=== PATIENT | female | born 1950 | race Caucasian/White ===

== ENCOUNTER 2016-10-21 10:05 | Emergency (ER) | payer MEDICARE, OTHER ==
[2016-10-21] MEDS ORDERED: Ibuprofen TAB* 600 MG PO ONE (10:23)
[2016-10-21 10:36] VITALS: BP 136/74
--- NOTE | 2016-10-21 11:19 | RAD ---
HISTORY: Left wrist injury COMPARISONS: None VIEWS: 3, Frontal, lateral, and oblique views left wrist FINDINGS: BONE DENSITY: Normal. BONES: There is a minimally displaced fracture of the distal ulnar metaphysis. Evaluation of the proximal forearm is limited. JOINTS: There is no arthropathy. ALIGNMENT: There is no dislocation. SOFT TISSUES: Unremarkable. OTHER FINDINGS: None. IMPRESSION: MINIMALLY DISPLACED FRACTURE OF THE DISTAL ULNA
[2016-10-21] MEDS ORDERED: HYDROcodone/ACETAMIN 5-325 MG* 1 TAB PO ONE (11:29)
--- NOTE | 2016-10-21 11:44 | UC ---
Hand/Wrist HPI - HPI Summary HPI Summary: left forearm pain , swelling and eechymosis left forearm, n/m/c intact swelling in left hand, (rings removed) - History Of Current Complaint Chief Complaint: UCUpperExtremity Stated Complaint: LEFT ARM INJURY Time Seen by Provider: 10/21/16 10:18 Hx Obtained From: Patient ?: No Mechanism Of Injury: fall-caught toe in shower ledge this morning Onset/Duration: Sudden Onset, Lasting Hours, Still Present Severity Initially: Severe Severity Currently: Severe Pain Intensity: 10 Pain Scale Used: 0-10 Numeric Character Of Pain: Aching, Throbbing Aggravating Factor(s): Movement Alleviating: Rest Associated Signs And Symptoms: Positive: Swelling, Bruising Related History: Dominant Hand Right - Allergies/Home Medications Allergies/Adverse Reactions: Allergies Allergy/AdvReac Type Severity Reaction Status Date / Time No Known Allergies Allergy Verified 10/21/16 10:31 PMH/Surg Hx/FS Hx/Imm Hx Previously Healthy: Yes - Surgical History Surgical History: Yes Surgery Procedure, Year, and Place: [email or web address] - Family History Known Family History: Positive: None Family History: no reported cardiovascular issues in family lineage - Social History Occupation: Retired Lives: With Family Alcohol Use: None Substance Use Type: None Smoking Status (MU): Heavy Every Day Tobacco Smoker Type: Cigarettes Amount Used/How Often: 1 PPD Cessation Counseling: Patient Advised to Stop Review of Systems Constitutional: Negative Skin: Negative Eyes: Negative ENT: Negative Respiratory: Negative Cardiovascular: Negative Gastrointestinal: Negative Genitourinary: Negative Motor: Decreased ROM - unable to supinate left arm Neurovascular: Negative Musculoskeletal: Negative, Arthralgia - left forearm, Edema Neurological: Negative Psychological: Negative All Other Systems Reviewed And Are Negative: Yes Physical Exam Triage Information Reviewed: Yes Appearance: Well-Appearing, Pain Distress, Thin Vital Signs: Initial Vital Signs Temp 99.5 F 10/21/16 10:32 Pulse 75 10/21/16 10:32 Resp 16 10/21/16 10:32 BP 136/74 10/21/16 10:32 Pulse Ox 96 10/21/16 10:32 Vital Signs Reviewed: Yes Eye Exam: Normal Eyes: Positive: Conjunctiva Clear ENT Exam: Normal ENT: Positive: Normal ENT inspection, Hearing grossly normal. Negative: Nasal congestion, Nasal drainage, Trismus, Muffled/hoarse voice Dental Exam: Normal Neck exam: Normal Neck: Positive: Supple, Nontender, No Lymphadenopathy Respiratory Exam: Normal Respiratory: Positive: Chest non-tender, No respiratory distress, No accessory muscle use Cardiovascular Exam: Normal Cardiovascular: Positive: RRR, Pulses Normal, Brisk Capillary Refill Musculoskeletal Exam: Normal Musculoskeletal: Positive: Strength Intact, ROM Intact, No Edema Neurological Exam: Normal Neurological: Positive: Alert, Muscle Tone Normal Psychological Exam: Normal Skin Exam: Normal Diagnostics - Radiology No standard instances Xray Interpretation: Positive (See Comments) - minimally displaced left distal ulna fracture Radiology Interpretation Completed By: Radiologist Re-Evaluation - Re-Evaluation First Eval Change: Improved - increase comfort n/m/c intact after sugar tounge splint and sling applied Hand/Wrist Course/Dx - Course Course Of Treatment: rice, splint and sling pain med, follow with ortho 2-3 days - Differential Dx/Diagnosis Differential Diagnosis/HQI/PQRI: Contusion, Fracture, Sprain, Strain Provider Diagnoses: Left distal ulna fracture, nicotine dependent Discharge - Discharge Plan Condition: Stable Disposition: HOME Prescriptions: HYDROcodone/ACETAMIN 5-325 MG* [[place] 5-325 TAB*] 1 - 2 tab PO Q6H PRN #30 tab MDD 8 PRN Reason: pain Ibuprofen TAB* [Motrin TAB* 600 MG] 600 mg PO Q6H PRN #40 tab PRN Reason: mild pain Patient Education Materials: Arm Fracture in Adults (ED), RICE Therapy (ED) Referrals: Fran Marie MD [Medical Doctor] - 2 Days
== END 2016-10-21 12:03 | disposition home or self-care (01) ==
LOC: UCCORT 10:05
DX: S52.602A Unspecified fracture of lower end of left ulna, initial encounter for closed fracture (principal); W18.2XXA Fall in (into) shower or empty bathtub, initial encounter; Y93.E1 Activity, personal bathing and showering
CPT/HCPCS: 25605; 99203; A9270-GY; G0463

== ENCOUNTER 2018-12-01 08:49 | Emergency (ER) | payer MEDICARE, OTHER ==
[2018-12-01 09:18] VITALS: BP 121/72
--- NOTE | 2018-12-01 09:43 | UC ---
General HPI - HPI Summary HPI Summary: 68 yo female CC weakness x 5 days. Feels similar to when she had a pneumonia in June 2018 and was admitted to [facility]. Denies fever, chest pain, abdominal pain, dysuria, diarrhea or blood in stool. Daughters report the patient eats very little. - History of Current Complaint Chief Complaint: UCRespiratory Stated Complaint: WEAKNESS Time Seen by Provider: 12/01/18 09:12 Pain Intensity: 0 - Allergy/Home Medications Allergies/Adverse Reactions: Allergies Allergy/AdvReac Type Severity Reaction Status Date / Time No Known Allergies Allergy Verified 12/01/18 09:19 PMH/Surg Hx/FS Hx/Imm Hx Previously Healthy: Yes - Surgical History Surgical History: Yes Surgery Procedure, Year, and Place: [facility] - Family History Known Family History: Positive: None Family History: no reported cardiovascular issues in family lineage - Social History Alcohol Use: None Substance Use Type: None Smoking Status (MU): Former Smoker Type: Cigarettes Amount Used/How Often: 1 PPD Review of Systems All Other Systems Reviewed And Are Negative: Yes Constitutional: Positive: Other - see hpi Skin: Positive: Negative Eyes: Positive: Negative ENT: Positive: Negative Respiratory: Positive: Negative Cardiovascular: Positive: Negative Gastrointestinal: Positive: Negative Genitourinary: Positive: Negative Motor: Positive: Other - see hpi Neurovascular: Positive: Negative Musculoskeletal: Positive: Negative Neurological: Positive: Other - see hpi Physical Exam Triage Information Reviewed: Yes Appearance: Well-Appearing, No Pain Distress, Well-Nourished Vital Signs: Initial Vital Signs Temp 99.3 F 12/01/18 09:11 Pulse 85 12/01/18 09:11 Resp 24 12/01/18 09:11 BP 121/72 12/01/18 09:11 Pulse Ox 96 12/01/18 09:11 Vital Signs Reviewed: Yes Eye Exam: Normal Eyes: Positive: Conjunctiva Clear ENT: Positive: Pharynx normal, Other - b/l cerumen impaction Neck: Positive: Supple Respiratory: Positive: Lungs clear, Normal breath sounds, No respiratory distress Cardiovascular: Positive: RRR Abdomen Description: Positive: Nontender, Soft. Negative: CVA Tenderness (R), CVA Tenderness (L) Musculoskeletal: Positive: Strength Intact, ROM Intact Neurological: Positive: Alert, Muscle Tone Normal Psychological: Positive: Normal Response To Family, Age Appropriate Behavior Skin Exam: Normal Course/Dx - Course Course Of Treatment: Patient Name: EDUAR HIGGINS Medical Record#: [id number] Ordering Physician: Ha Rondon MD Acct.#: [id number] : 1950 Age: 68 Sex: F Location: [facility] Exam Date: 12/01/18 0937 ADM Status: REG ER Order Information: CHEST PA LAT 2 VWS Accession Number: [id number] CPT: 82917 INDICATION: Weakness. Pneumonia in June. History of tobacco use. COMPARISON: July 08, 2018 TECHNIQUE: Dual energy PA and routine lateral views of the chest were obtained. REPORT: Elevated lung volumes and diffuse mild to moderate prominence of interstitial markings. Subtle asymmetric alveolar consolidation at the RIGHT upper lung zone mildly different in distribution than on the prior exam is suspicious for a new pneumonia. Negative for pleural effusions or pneumothorax. The heart, pulmonary vasculature , and mediastinal contours are unremarkable. IMPRESSION: #. Subtle asymmetric alveolar consolidation at the RIGHT upper lung zone mildly different in distribution than on the prior exam is suspicious for a new pneumonia. #. Stigmata of chronic obstructive pulmonary disease. <Electronically signed by Tomi Casiano MD in [place]> 12/01/18 1005 I discussed the CXR with the patient and her family. Will treat for pneumonia with azithromycin. Pt has [employer] in [place] and will F/U with him and PMD. Reeval sooner if worse. - Diagnoses Provider Diagnosis: Weakness, Pneumonia Discharge - Sign-Out/Discharge Documenting (check all that apply): Patient Departure All imaging exams completed and their final reports reviewed: Yes - Discharge Plan Condition: Stable Disposition: HOME Prescriptions: Azithromycin TAB* [Zithromax TAB (Z-VI) 250 mg #6 tabs] 2 tab PO .TODAY, THEN 1 DAILY #1 vi Patient Education Materials: Weakness (ED), Community Acquired Pneumonia (ED) Referrals: Daniel Mitchell MD [Primary Care Provider] - Additional Instructions: FOLLOW UP WITH YOUR CLINICAL TEAM MANAGER IN [place] AND YOUR PRIMARY CARE DOCTOR. GO TO THE EMERGENCY DEPARTMENT IF WORSE OR ANY QUESTIONS OR CONCERNS. - Billing Disposition and Condition Condition: STABLE Disposition: Home
== END 2018-12-01 10:41 | disposition home or self-care (01) ==
LOC: UCCORT 08:49
DX: R53.1 Weakness (principal); J18.9 Pneumonia, unspecified organism; Z87.891 Personal history of nicotine dependence
CPT/HCPCS: 71046; 81003; 87086; 99212; G0463